=== PATIENT | female | born 1960 | race Caucasian/White ===

== ENCOUNTER 2018-07-19 12:04 | Inpatient (IN) | payer MEDICAID, OTHER ==
[~2018-07-19] VITALS: Ht 154.9 cm; Wt 47.0 kg
[2018-07-19] MEDS ORDERED: ALBUTEROL/IPRATROPIUM 2.5MG/0.5MG, 3 ML NPPB PRN (12:30)
[2018-07-19] MEDS ORDERED: ALBUTEROL/IPRATROPIUM 2.5MG/0.5MG, 3 ML ONE ×2 (13:00→15:23)
[2018-07-19 13:04] LABS: BASOPHILS # (AUTO) 0.03 x10^3/uL (0-0.1); BASOPHILS % (AUTO) 0 % (0-1); EOSINOPHILS # (AUTO) 0.05 x10^3/uL (0-0.4); EOSINOPHILS % (AUTO) 1 % (1-7); LYMPHOCYTES % (AUTO) 27 % (22-44); MD NO; MEAN CORPUSCULAR HEMOGLOBIN 37.7 pg (27.0-34.8); MEAN CORPUSCULAR VOLUME 107.5 fL (80-100); MEAN PLATELET VOLUME 7.9 fL (7.4-10.4); MONOCYTES # (AUTO) 0.62 x10^3/uL (0.2-0.8); MONOCYTES % (AUTO) 9 % (2-9); NEUTROPHILS # (AUTO) 4.55 x10^3/uL (1.8-6.8); NEUTROPHILS % (AUTO) 64 % (42-75); PLATELET COUNT 229 x10^3/uL (130-400); RED BLOOD COUNT 4.26 x10^6/uL (3.82-5.3); RED CELL DISTRIBUTION WIDTH 13.7 % (9.6-15.2)
[2018-07-19 13:13] LABS: ALBUMIN 3.1 g/dL (3.4-5.0); ANION GAP 9 mmol/L (5-15); CALCIUM 8.8 mg/dL (8.5-10.1); CHLORIDE 109 mmol/L (98-107); CREATININE 0.67 mg/dL (0.55-1.02)
[2018-07-19 13:29] LABS: TROPONIN I < 0.015 ng/mL (0.000-0.045)
[2018-07-19] MEDS ORDERED: AZITHROMYCIN 500 MG in SODIUM CHLORIDE 0.9% 250 ML IV ONE (14:30)
[2018-07-19] MEDS ORDERED: SODIUM CHLORIDE 0.9% 1,000ML IVBOLUS ONE (14:30)
[2018-07-19] MEDS ORDERED: ALBUTEROL SULFATE 2.5 MG/3 ML NPPB ONE (14:30)
[2018-07-19] MEDS ORDERED: NITROGLYCERIN 0.4 MG/SPRAY SL PRN (15:30)
[2018-07-19] MEDS ORDERED: KETOROLAC 30 MG/1 ML IV PRN (15:30)
[2018-07-19] MEDS ORDERED: NITROGLYCERIN 0.4 MG BOTTLE (25 TABS) SL PRN (15:30)
[2018-07-19] MEDS ORDERED: LIDODERM 5% PATCH TD PRN (15:30)
[2018-07-19] MEDS ORDERED: ONDANSETRON ODT 4 MG PO PRN (15:30)
[2018-07-19] MEDS ORDERED: BISACODYL 10 MG SUPP PR PRN (15:30)
[2018-07-19] MEDS ORDERED: DOCUSATE 100 MG CAPSULE PO PRN (15:30)
[2018-07-19] MEDS ORDERED: ACETAMINOPHEN 325 MG TABLET PO PRN (15:30)
[2018-07-19] MEDS ORDERED: ONDANSETRON 2MG/ML, 2ML IVPush PRN (15:30)
[2018-07-19] MEDS ORDERED: POLYETHYLENE GLYCOL 17 GM PACKET PO PRN (15:30)
[2018-07-19] MEDS ORDERED: ENOXAPARIN 40 MG/0.4 ML ONE (16:00)
[2018-07-19 16:13] LABS: THYROID STIMULATING HORMONE 0.617 mIU/L (0.358-3.740)
[2018-07-19 16:19] LABS: FOLATE LEVEL > 20.0 ng/mL (3.1-17.5)
[2018-07-19] MEDS ORDERED: ALBUTEROL SULFATE 2.5 MG/3 ML NPPB PRN (16:30)
[2018-07-19] MEDS: DOXYCYCLINE 100 MG in DEXTROSE 5% 250 ML IV SCH (17:00)
[2018-07-19 18:32] VITALS: BP 115/78
[2018-07-19 19:34] LABS: TROPONIN I < 0.015 ng/mL (0.000-0.045)
[2018-07-19 19:37] VITALS: BP 115/78
[2018-07-19] MEDS: ALBUTEROL SULFATE 2.5 MG/3 ML NPPB SCH (20:00)
[2018-07-19] MEDS ORDERED: BACL5TAB PO (20:05)
[2018-07-19] MEDS ORDERED: [UNRECOGNIZED DRUG - CODE] PO (20:06)
[2018-07-19] MEDS ORDERED: GABA300S PO (20:10)
[2018-07-19] MEDS ORDERED: NAPR500T8 PO (20:10)
[2018-07-19] MEDS ORDERED: NAPROXEN 500 MG TABLET PO PRN (20:30)
[2018-07-19] MEDS: ENOXAPARIN 40 MG/0.4 ML SQ SCH (20:46)
[2018-07-19] MEDS ORDERED: BACLOFEN 10 MG TABLET PO PRN (21:00)
[2018-07-19] MEDS: GUAIFENESIN 200 MG TABLET PO SCH ×2 (21:12→21:51)
[2018-07-19] MEDS: BENZONATATE 100 MG CAPSULE PO SCH ×2 (21:13→21:52)
[2018-07-19] MEDS: GABAPENTIN 300 MG CAPSULE PO SCH (21:13)
[2018-07-19] MEDS: SODIUM CHLORIDE 0.9% 1,000 ML IV SCH (21:15)
[2018-07-19] MEDS: NICOTINE 14MG/24 HR PATCH.TD24 TD SCH (21:16)
[2018-07-19] MEDS: FLUTICASONE NASAL SPRAY 16GM NAS SCH (22:00)
[2018-07-19] MEDS: SODIUM CHLORIDE NASAL SPRAY 45ML BOTTLE NAS SCH (22:00)
[2018-07-19] MEDS: BACLOFEN 10 MG TABLET PO PRN (22:13)
[2018-07-20 00:49] VITALS: BP 110/73
[2018-07-20] MEDS: DOXYCYCLINE 100 MG in DEXTROSE 5% 250 ML IV SCH ×2 (03:11→16:20)
[2018-07-20] MEDS: GUAIFENESIN 200 MG TABLET PO SCH ×4 (05:41→20:49)
[2018-07-20] MEDS: ASPIRIN 325 MG TABLET EC PO SCH (05:41)
[2018-07-20 05:57] LABS: MEAN CORPUSCULAR HEMOGLOBIN 37.5 pg (27.0-34.8); MEAN CORPUSCULAR HGB CONC 34.5 g/dL (32.4-35.8); MEAN CORPUSCULAR VOLUME 108.7 fL (80-100); MEAN PLATELET VOLUME 8.7 fL (7.4-10.4); PLATELET COUNT 202 x10^3/uL (130-400); RED BLOOD COUNT 4.59 x10^6/uL (3.82-5.3); RED CELL DISTRIBUTION WIDTH 13.9 % (9.6-15.2)
[2018-07-20 06:12] LABS: CHLORIDE 108 mmol/L (98-107)
[2018-07-20 06:17] LABS: BASOPHILS # (AUTO) 0.01 x10^3/uL (0-0.1); BASOPHILS % (AUTO) 0 % (0-1); EOSINOPHILS % (AUTO) 0 % (1-7); LYMPHOCYTES # (AUTO) 0.58 x10^3/uL (1-3.4); LYMPHOCYTES % (AUTO) 7 % (22-44); MD SCAN; MONOCYTES % (AUTO) 2 % (2-9); NEUTROPHILS % (AUTO) 91 % (42-75)
[2018-07-20 06:24] LABS: ANION GAP 12 mmol/L (5-15); CALCIUM 8.6 mg/dL (8.5-10.1); CREATININE 0.87 mg/dL (0.55-1.02)
[2018-07-20 07:05] VITALS: BP 126/81
[2018-07-20] MEDS: ALBUTEROL SULFATE 2.5 MG/3 ML NPPB SCH ×3 (08:10→14:43)
[2018-07-20] MEDS: SODIUM CHLORIDE 0.9% 1,000 ML IV SCH (08:42)
[2018-07-20] MEDS: CETIRIZINE 10 MG TABLET PO SCH (08:42)
[2018-07-20] MEDS: BENZONATATE 100 MG CAPSULE PO SCH ×3 (08:43→20:49)
[2018-07-20] MEDS: SODIUM CHLORIDE NASAL SPRAY 45ML BOTTLE NAS SCH ×2 (08:43→20:52)
[2018-07-20] MEDS: FLUTICASONE NASAL SPRAY 16GM NAS SCH ×2 (08:43→20:53)
[2018-07-20] MEDS: GABAPENTIN 300 MG CAPSULE PO SCH ×3 (08:43→20:49)
[2018-07-20] MEDS: BACLOFEN 10 MG TABLET PO PRN ×2 (12:08→20:52)
[2018-07-20 12:15] VITALS: BP 118/80
[2018-07-20] MEDS ORDERED: BACLOFEN 10 MG TABLET PO PRN (15:30)
[2018-07-20] MEDS: ENOXAPARIN 40 MG/0.4 ML SQ SCH (16:21)
[2018-07-20] MEDS ORDERED: ALBUTEROL SULFATE 2.5 MG/3 ML ONE (19:14)
[2018-07-20 19:47] VITALS: BP 137/80
[2018-07-20] MEDS: NAPROXEN 500 MG TABLET PO SCH (20:49)
[2018-07-20] MEDS: NICOTINE 14MG/24 HR PATCH.TD24 TD SCH (20:50)
[2018-07-21] MEDS: DOXYCYCLINE 100 MG in DEXTROSE 5% 250 ML IV SCH ×2 (03:36→15:13)
[2018-07-21 03:43] VITALS: BP 147/93
[2018-07-21] MEDS ORDERED: ALBUTEROL SULFATE 2.5 MG/3 ML ONE (03:58)
[2018-07-21] MEDS: ALBUTEROL SULFATE 2.5 MG/3 ML NPPB SCH ×5 (04:25→20:00)
[2018-07-21] MEDS ORDERED: ALBUTEROL SULFATE 2.5 MG/3 ML NPPB PRN (04:30)
[2018-07-21 05:23] LABS: ANION GAP 13 mmol/L (5-15); CALCIUM 8.1 mg/dL (8.5-10.1); CHLORIDE 113 mmol/L (98-107)
[2018-07-21 05:24] LABS: CREATININE 0.89 mg/dL (0.55-1.02)
[2018-07-21 05:39] LABS: MEAN CORPUSCULAR HEMOGLOBIN 37.6 pg (27.0-34.8); MEAN CORPUSCULAR HGB CONC 34.4 g/dL (32.4-35.8); MEAN CORPUSCULAR VOLUME 109.2 fL (80-100); MEAN PLATELET VOLUME 8.8 fL (7.4-10.4); PLATELET COUNT 186 x10^3/uL (130-400); RED BLOOD COUNT 4.06 x10^6/uL (3.82-5.3); RED CELL DISTRIBUTION WIDTH 13.8 % (9.6-15.2)
[2018-07-21] MEDS: ASPIRIN 325 MG TABLET EC PO SCH (05:41)
[2018-07-21] MEDS: GUAIFENESIN 200 MG TABLET PO SCH ×2 (05:41→10:23)
[2018-07-21 06:38] LABS: MD YES
[2018-07-21 06:39] LABS: ANISOCYTOSIS 1+; BAND#(MANUAL) 0.68 x10^3/uL; BANDS%(MANUAL) 5 % (0-7); LYMPH#(MANUAL) 1.22 x10^3/uL (1-3.4); LYMPHS% (MANUAL) 9 % (22-44); MONOS#(MANUAL) 0.41 x10^3/uL (0.3-2.7); MONOS% (MANUAL) 3 % (2-9); SEG#(MANUAL) 11.29 x10^3/uL (1.8-6.8); SEGS% (MANUAL) 83 % (42-75)
[2018-07-21 06:41] LABS: <PLATELET ESTIMATE> ADEQUATE; <PLT MORPHOLOGY> NORMAL PLT MORPH
[2018-07-21] MEDS ORDERED: POTASSIUM CHLORIDE 20 MEQ TAB.ER.PRT PO ONE (07:30)
[2018-07-21 07:42] VITALS: BP 130/82
[2018-07-21] MEDS: BENZONATATE 100 MG CAPSULE PO SCH ×3 (07:47→20:00)
[2018-07-21] MEDS: GABAPENTIN 300 MG CAPSULE PO SCH ×4 (07:47→20:02)
[2018-07-21] MEDS: CETIRIZINE 10 MG TABLET PO SCH (07:48)
[2018-07-21] MEDS: NAPROXEN 500 MG TABLET PO SCH ×2 (07:48→20:01)
[2018-07-21] MEDS: FLUTICASONE NASAL SPRAY 16GM NAS SCH ×2 (07:56→20:00)
[2018-07-21] MEDS: SODIUM CHLORIDE NASAL SPRAY 45ML BOTTLE NAS SCH ×2 (07:56→20:00)
[2018-07-21] MEDS: ENOXAPARIN 40 MG/0.4 ML SQ SCH (15:19)
[2018-07-21 19:25] VITALS: BP 136/87
[2018-07-21] MEDS: GUAIFENESIN ER 600 MG TABLET PO SCH (20:00)
[2018-07-21] MEDS: NICOTINE 14MG/24 HR PATCH.TD24 TD SCH (20:01)
[2018-07-21] MEDS: BACLOFEN 10 MG TABLET PO PRN (21:11)
[2018-07-22 01:43] VITALS: BP 143/91
[2018-07-22] MEDS: DOXYCYCLINE 100 MG in DEXTROSE 5% 250 ML IV SCH ×2 (03:38→15:30)
[2018-07-22] MEDS: ASPIRIN 325 MG TABLET EC PO SCH (05:51)
[2018-07-22] MEDS: ALBUTEROL SULFATE 2.5 MG/3 ML NPPB SCH ×3 (06:40→15:00)
[2018-07-22 07:06] VITALS: BP 140/93
[2018-07-22] MEDS: GABAPENTIN 300 MG CAPSULE PO SCH ×2 (09:00→09:09)
[2018-07-22] MEDS: NAPROXEN 500 MG TABLET PO SCH (09:00)
[2018-07-22] MEDS: GUAIFENESIN ER 600 MG TABLET PO SCH (09:08)
[2018-07-22] MEDS: CETIRIZINE 10 MG TABLET PO SCH (09:09)
[2018-07-22] MEDS: BENZONATATE 100 MG CAPSULE PO SCH (09:09)
[2018-07-22] MEDS: FLUTICASONE NASAL SPRAY 16GM NAS SCH (09:10)
[2018-07-22] MEDS: SODIUM CHLORIDE NASAL SPRAY 45ML BOTTLE NAS SCH (09:10)
[2018-07-22] MEDS ORDERED: GUAI600T31 PO (10:16)
[2018-07-22] MEDS ORDERED: DOXY100C15 PO (10:16)
[2018-07-22] MEDS ORDERED: PRED20TA PO (10:16)
[2018-07-22] MEDS ORDERED: ALBU2.5V NPPB (10:16)
[2018-07-22] MEDS ORDERED: ERGO500017 PO (10:30)
[2018-07-22 13:32] VITALS: BP 142/89
[2018-07-22] MEDS: ENOXAPARIN 40 MG/0.4 ML SQ SCH (15:30)
== END 2018-07-22 16:34 | disposition home or self-care (01) | DRG 192 ==
LOC: ED 14:12 → EDIP 15:15 → 4EST 18:11
PROVIDERS: ADMIT Internal Medicine; ATTEND Internal Medicine
DX: J44.1 Chronic obstructive pulmonary disease with (acute) exacerbation (principal); D75.89 Other specified diseases of blood and blood-forming organs; E55.9 Vitamin D deficiency, unspecified; F12.90 Cannabis use, unspecified, uncomplicated; F32.9 Major depressive disorder, single episode, unspecified; F41.1 Generalized anxiety disorder; R09.02 Hypoxemia; M81.0 Age-related osteoporosis without current pathological fracture; D75.1 Secondary polycythemia; G89.29 Other chronic pain; Z87.891 Personal history of nicotine dependence; Z90.710 Acquired absence of both cervix and uterus; Z88.6 Allergy status to analgesic agent; Z91.018 Allergy to other foods
CPT/HCPCS: 36415; 99285; J7613; 71046; 80048; 82040; 82306; 82607; 82746; 83735; 84443; 84484; 85025; 87070; 87205; 93005; 94640; G0378; J0456; J1650; J7060; J7030; J7050; J7512

== ENCOUNTER 2018-10-16 20:30 | Inpatient (IN) | payer MEDICAID ==
[~2018-10-16] VITALS: Ht 162.6 cm; Wt 54.3 kg
[~2018-10-16 20:30] MED LIST: ALBU2.5V NPPB; BACL5TAB PO; DOXY100C15 PO; ERGO500017 PO; ETOMIDATE 40 MG/20 ML ONE; GABA300S PO; GUAI600T31 PO; MIDAZOLAM 1 MG/ML, 5ML ONE; NAPR500T8 PO; PRED20TA PO; PROPOFOL 10 MG/ML, 100ML IV ONE; SUCCINYLCHOLINE 20 MG/ML, 10ML ONE; [UNRECOGNIZED DRUG - CODE] PO
[2018-10-16] MEDS ORDERED: LORazepam 2 MG/ML, 1ML ONE (20:36)
[2018-10-16] MEDS ORDERED: SODIUM CHLORIDE 0.9% 1,000ML IVBOLUS ONE ×2 (21:00→22:00)
[2018-10-16] MEDS ORDERED: SODIUM CHLORIDE FLUSH 10ML SYR IVF ONE (21:00)
[2018-10-16] MEDS ORDERED: LORazepam 2 MG/ML, 1ML IVPush ONE (21:00)
[2018-10-16 21:07] LABS: CULTURE INDICATED? YES; HCG UR SG > 1.030 (1.003-1.030); MICROSCOPIC INDICATED
[2018-10-16] MEDS ORDERED: ALBUTEROL/IPRATROPIUM 2.5MG/0.5MG, 3 ML ONE (21:20)
[2018-10-16 21:30] LABS: AMPHETAMINE SCREEN, URINE Negative (Negative); BARBITURATE SCREEN, URINE Negative (Negative); BENZODIAZEPINE SCREEN, URINE Negative (Negative); CANNABINOID SCREEN, URINE Positive (Negative); COCAINE SCREEN, URINE Negative (Negative); METHADONE SCREEN, URINE Negative (Negative); OPIATE SCREEN, URINE Negative (Negative)
[2018-10-16] MEDS ORDERED: ALBUTEROL/IPRATROPIUM 2.5MG/0.5MG, 3 ML NPPB ONE (21:30)
[2018-10-16 21:32] LABS: ALANINE AMINOTRANSFERASE 24 U/L (12-78); ANION GAP 16 mmol/L (5-15); CALCIUM 8.3 mg/dL (8.5-10.1); CHLORIDE 98 mmol/L (98-107); CREATININE 2.33 mg/dL (0.55-1.02)
[2018-10-16 21:34] LABS: ALKALINE PHOSPHATASE 61 U/L (45-117); BILIRUBIN,TOTAL 3.3 mg/dL (0.2-1.0); TOTAL PROTEIN 6.6 g/dL (6.4-8.2)
[2018-10-16 21:49] LABS: ACETAMINOPHEN < 2 mcg/mL (10-30); SALICYLATE LEVEL < 1.7 mg/dL (2.8-20.0)
[2018-10-16] MEDS ORDERED: AZITHROMYCIN 500 MG in SODIUM CHLORIDE 0.9% 250 ML IV ONE (22:00)
[2018-10-16] MEDS ORDERED: CEFTRIAXONE PMX 1GM/50ML 50 ML IV ONE (22:00)
[2018-10-16] MEDS ORDERED: DEXTROSE 50%, 50ML SYRINGE ONE (22:08)
[2018-10-16] MEDS ORDERED: CEFTRIAXONE PMX 1GM/50ML 50 ML ONE (22:11)
[2018-10-16] MEDS ORDERED: DEXTROSE 50%, 50ML SYRINGE IVPush ONE (22:30)
[2018-10-16] MEDS ORDERED: PROPOFOL 100 ML IV PRN (22:41)
[2018-10-16 22:49] LABS: MEAN CORPUSCULAR HEMOGLOBIN 36.2 pg (27.0-34.8); MEAN CORPUSCULAR HGB CONC 34.8 g/dL (32.4-35.8); MEAN CORPUSCULAR VOLUME 103.9 fL (80-100); RED BLOOD COUNT 4.11 x10^6/uL (3.82-5.3); RED CELL DISTRIBUTION WIDTH 12.6 % (9.6-15.2)
[2018-10-16 22:51] LABS: MD YES; PLATELET COUNT 13 x10^3/uL (130-400)
[2018-10-16 22:57] LABS: INTERNATIONAL NORMALIZED RATIO 1.19 (0.93-1.1); PROTHROMBIN TIME 12.5 Seconds (9.6-11.5)
[2018-10-16 22:59] LABS: PARTIAL THROMBOPLASTIN TIME > 153 Seconds (25-31)
[2018-10-16] MEDS ORDERED: ETOMIDATE 20 MG/10 ML IVPush ONE (23:00)
[2018-10-16] MEDS ORDERED: SUCCINYLCHOLINE 20 MG/ML, 10ML IVPush ONE (23:00)
[2018-10-16 23:09] LABS: ANISOCYTOSIS 1+; BAND#(MANUAL) 1.55 x10^3/uL; BANDS%(MANUAL) 37 % (0-7); LYMPH#(MANUAL) 0.17 x10^3/uL (1-3.4); LYMPHS% (MANUAL) 4 % (22-44); METAMYELOCYTES# (MANUAL) 0.04 x10^3/uL (0-0); METAMYELOCYTES% (MANUAL) 1 % (0-1); MONOS#(MANUAL) 0.13 x10^3/uL (0.3-2.7); MONOS% (MANUAL) 3 % (2-9); SEG#(MANUAL) 2.31 x10^3/uL (1.8-6.8); SEGS% (MANUAL) 55 % (42-75)
[2018-10-16 23:10] LABS: PMNS WITH VACUOLES 1+; TOXIC GRAN 2+
[2018-10-16 23:11] LABS: <PLATELET ESTIMATE> DECREASED; POLYCHROMASIA 1+
[2018-10-16 23:12] LABS: LARGE PLATELETS 1+
[2018-10-16] MEDS ORDERED: hydrALAzine 20 MG/ML, 1ML IVPush PRN (23:30)
[2018-10-16] MEDS ORDERED: FAMOTIDINE 20 MG/2 ML IVPush SCH (23:30)
[2018-10-16] MEDS ORDERED: ONDANSETRON 2MG/ML, 2ML IVPush PRN (23:30)
[2018-10-17 00:17] LABS: TROPONIN I 0.079 ng/mL (0.000-0.045)
[2018-10-17] MEDS ORDERED: MIDAZOLAM 1 MG/ML, 5ML IVPush ONE ×2 (00:30)
[2018-10-17] MEDS ORDERED: CEFTRIAXONE PMX 2GM/50ML 50 ML IV SCH ×2 (00:30→22:00)
[2018-10-17] MEDS ORDERED: AZITHROMYCIN 500 MG in SODIUM CHLORIDE 0.9% 250 ML IV SCH ×2 (00:30→22:00)
[2018-10-17] MEDS ORDERED: SODIUM BICARB 8.4%, 50ML SYRINGE ONE ×2 (00:38→12:55)
[2018-10-17] MEDS: SODIUM CHLORIDE 0.9% 1,000 ML IV SCH ×3 (00:43→14:24)
[2018-10-17] MEDS ORDERED: PROPOFOL 100 ML IV PRN (00:50)
[2018-10-17] MEDS ORDERED: NOREPINEPHRINE 4 MG in SODIUM CHLORIDE 0.9% 246 ML IV PRN (00:50)
[2018-10-17] MEDS ORDERED: LACTULOSE 20 GM/30 ML UDC NG PRN (01:00)
[2018-10-17] MEDS ORDERED: LIDOCAINE-MPF 1%, 2ML ENDO PRN (01:00)
[2018-10-17] MEDS ORDERED: PHARMACY MAY ADJ FOR RENAL FX MC SCH (01:00)
[2018-10-17] MEDS ORDERED: SODIUM BICARB 8.4%, 50ML SYRINGE IVPush ONE ×3 (01:00→15:00)
[2018-10-17] MEDS ORDERED: SODIUM CHLORIDE 0.9% 1,000ML IVBOLUS ONE ×2 (01:00→13:30)
[2018-10-17] MEDS ORDERED: SENNOSIDES 8.8 MG/5 ML ORAL SOL NG PRN (01:00)
[2018-10-17] MEDS ORDERED: FENTANYL PF 100 MCG/2ML IVPush PRN (01:00)
[2018-10-17] MEDS ORDERED: BISACODYL 10 MG SUPP PR PRN (01:00)
[2018-10-17] MEDS ORDERED: DOCUSATE 50 MG/5 ML, 10ML UDC PO PRN (01:30)
[2018-10-17] MEDS ORDERED: LACTATED RINGERS 1,000 ML IVBOLUS ONE ×2 (01:30)
[2018-10-17] MEDS ORDERED: SENNOSIDES 8.8 MG/5 ML ORAL SOL PO PRN (01:30)
[2018-10-17 01:31] LABS: PROTIME 12.3 Seconds (9.6-11.5)
[2018-10-17 01:32] LABS: D-DIMER (DIC) 4.33 ug/mlFEU (0.00-0.52)
[2018-10-17 01:40] LABS: FIBRINOGEN > 860 mg/dL (200-340); PLATELET (DIC) 14 x10^3/uL (130-400); PTT > 153 Seconds (25-31)
[2018-10-17] MEDS: ALBUTEROL/IPRATROPIUM 2.5MG/0.5MG, 3 ML INLINE SCH ×6 (02:23→21:00)
[2018-10-17 02:30] LABS: SALICYLATE LEVEL 2.4 mg/dL (2.8-20.0); TRIGLYCERIDES 259 mg/dL (50-200); TROPONIN I 0.087 ng/mL (0.000-0.045)
[2018-10-17 02:32] LABS: ACETAMINOPHEN < 2 mcg/mL (10-30)
[2018-10-17] MEDS: PIPERACILLIN/TAZO/PMX 3.375GM 50 ML IV SCH ×2 (02:39→13:25)
[2018-10-17 03:24] LABS: RAPID INFLUENZA A Negative (Negative); RAPID INFLUENZA B Negative (Negative)
[2018-10-17 04:00] VITALS: BP 94/63
[2018-10-17] MEDS ORDERED: VANCOMYCIN PER PHARMACY MC PRN (04:30)
[2018-10-17] MEDS ORDERED: PHARMACOKINETIC MONITORING MC PRN (05:00)
[2018-10-17] MEDS ORDERED: VANCOMYCIN PMX 1GM/200ML 200 ML IVPB ONE (05:00)
[2018-10-17] MEDS ORDERED: PHARMACOKINETIC CONSULTATION MC ONE (05:00)
[2018-10-17 05:17] LABS: MEAN CORPUSCULAR HEMOGLOBIN 35.9 pg (27.0-34.8); MEAN CORPUSCULAR HGB CONC 34.6 g/dL (32.4-35.8); MEAN CORPUSCULAR VOLUME 103.7 fL (80-100); RED BLOOD COUNT 3.91 x10^6/uL (3.82-5.3); RED CELL DISTRIBUTION WIDTH 13.1 % (9.6-15.2)
[2018-10-17 05:23] LABS: ALBUMIN 1.2 g/dL (3.4-5.0); ANION GAP 12 mmol/L (5-15); CALCIUM 6.8 mg/dL (8.5-10.1); CHLORIDE 107 mmol/L (98-107)
[2018-10-17 05:26] LABS: ALANINE AMINOTRANSFERASE 18 U/L (12-78); ALKALINE PHOSPHATASE 44 U/L (45-117); BILIRUBIN,TOTAL 3.7 mg/dL (0.2-1.0); CREATININE 2.19 mg/dL (0.55-1.02); TOTAL PROTEIN 4.5 g/dL (6.4-8.2)
[2018-10-17 05:27] LABS: TROPONIN I 0.122 ng/mL (0.000-0.045)
[2018-10-17 05:47] LABS: MD YES
[2018-10-17 05:52] LABS: MEAN PLATELET VOLUME 9.5 fL (7.4-10.4)
[2018-10-17 05:54] LABS: <PLATELET ESTIMATE> DECREASED; ANISOCYTOSIS 1+; BAND#(MANUAL) 0.92 x10^3/uL; BANDS%(MANUAL) 20 % (0-7); EOS#(MANUAL) 0.09 x10^3/uL (0.0-0.4); EOS% (MANUAL) 2 % (1-7); LYMPH#(MANUAL) 0.14 x10^3/uL (1-3.4); LYMPHS% (MANUAL) 3 % (22-44); METAMYELOCYTES# (MANUAL) 0.18 x10^3/uL (0-0); METAMYELOCYTES% (MANUAL) 4 % (0-1); MONOS#(MANUAL) 0.37 x10^3/uL (0.3-2.7); MONOS% (MANUAL) 8 % (2-9); PMNS WITH VACUOLES 1+; POLYCHROMASIA 1+; SEGS% (MANUAL) 63 % (42-75); TOXIC GRAN 2+
[2018-10-17 05:55] LABS: <PLT MORPHOLOGY> NORMAL PLT MORPH; PLATELET COUNT 9 x10^3/uL (130-400)
[2018-10-17] MEDS ORDERED: ALBUMIN HUMAN 5% 500 ML IV ONE (06:30)
[2018-10-17 08:14] VITALS: BP 83/46
[2018-10-17 08:30] VITALS: BP 83/46
[2018-10-17 08:45] VITALS: BP 83/48
[2018-10-17] MEDS ORDERED: VASOPRESSIN 100 UNIT in SODIUM CHLORIDE 0.9% 495 ML IV PRN (09:00)
[2018-10-17] MEDS ORDERED: HEPARIN 5,000 UNITS/ML, 1ML SQ SCH (09:00)
[2018-10-17] MEDS: PANTOPRAZOLE 40 MG IV IV SCH (09:00)
[2018-10-17] MEDS ORDERED: PANTOPRAZOLE 40 MG IV IVPush SCH (09:00)
[2018-10-17 09:15] VITALS: BP 72/46
[2018-10-17 09:30] VITALS: BP 79/45
[2018-10-17] MEDS ORDERED: NOREPINEPHRINE 8 MG in SODIUM CHLORIDE 0.9% 246 ML IV PRN (09:30)
[2018-10-17] MEDS ORDERED: PHENYLEPHRINE 20 MG in SODIUM CHLORIDE 0.9% 248 ML IV PRN (11:00)
[2018-10-17] MEDS ORDERED: EPINEPHRINE 2 MG in SODIUM CHLORIDE 0.9% 248 ML IV PRN (11:00)
[2018-10-17] MEDS ORDERED: SODIUM BICARBONATE 1 MEQ/ML, 50ML VIAL IVPush ONE (13:30)
[2018-10-17] MEDS ORDERED: SODIUM BICARBONATE 8.4% 150 MEQ in DEXTROSE 5% 1,000 ML IV SCH (14:30)
[2018-10-17] MEDS ORDERED: THIAMINE 200 MG in SODIUM CHLORIDE 0.9% 50 ML IV SCH (14:30)
[2018-10-17] MEDS: SODIUM BICARBONATE 8.4% 150 MEQ in DEXTROSE 5% 1,000 ML IV SCH ×2 (15:00→21:48)
[2018-10-17] MEDS ORDERED: MEROPENEM 1 GM in SODIUM CHLORIDE 0.9% 100 ML IV SCH (15:00)
[2018-10-17 15:40] LABS: MEAN CORPUSCULAR HGB CONC 33.6 g/dL (32.4-35.8); MEAN CORPUSCULAR VOLUME 104.1 fL (80-100); RED BLOOD COUNT 2.48 x10^6/uL (3.82-5.3); RED CELL DISTRIBUTION WIDTH 13.3 % (9.6-15.2)
[2018-10-17] MEDS: ALBUMIN HUMAN 25% 100 ML IV SCH ×2 (15:40→21:46)
[2018-10-17 15:43] LABS: MEAN PLATELET VOLUME 8.2 fL (7.4-10.4)
[2018-10-17 15:45] LABS: ALANINE AMINOTRANSFERASE 15 U/L (12-78); ANION GAP 15 mmol/L (5-15); CHLORIDE 112 mmol/L (98-107); MD YES; PLATELET COUNT 25 x10^3/uL (130-400)
[2018-10-17 15:48] LABS: ALKALINE PHOSPHATASE 52 U/L (45-117); BILIRUBIN,TOTAL 2.9 mg/dL (0.2-1.0); CREATININE 2.46 mg/dL (0.55-1.02); TOTAL PROTEIN 3.3 g/dL (6.4-8.2)
[2018-10-17 15:53] LABS: CALCIUM 5.6 mg/dL (8.5-10.1)
[2018-10-17] MEDS ORDERED: DEXTROSE 50%, 50ML SYRINGE ONE (15:55)
[2018-10-17 15:58] LABS: METAMYELOCYTES# (MANUAL) 0.72 x10^3/uL (0-0); METAMYELOCYTES% (MANUAL) 9 % (0-1); MONOS#(MANUAL) 0.32 x10^3/uL (0.3-2.7); MONOS% (MANUAL) 4 % (2-9); MYELOCYTES# (MANUAL) 0.08 x10^3/uL (0-0); MYELOCYTES% (MANUAL) 1 % (0-0); NRBC % (MANUAL) 2 % (0-1); SEG#(MANUAL) 4.64 x10^3/uL (1.8-6.8); SEGS% (MANUAL) 58 % (42-75)
[2018-10-17 15:59] LABS: ANISOCYTOSIS 1+; BAND#(MANUAL) 1.84 x10^3/uL; BANDS%(MANUAL) 23 % (0-7); LYMPHS% (MANUAL) 5 % (22-44); PMNS WITH VACUOLES 1+; TOXIC GRAN 2+
[2018-10-17 16:00] LABS: <PLATELET ESTIMATE> DECREASED; LARGE PLATELETS 1+
[2018-10-17] MEDS ORDERED: GLUCAGON 1 MG IM PRN (16:00)
[2018-10-17] MEDS ORDERED: DEXTROSE 4 GM TAB.CHEW PO PRN (16:00)
[2018-10-17] MEDS ORDERED: DEXTROSE 50%, 50ML SYRINGE IVPush PRN (16:00)
[2018-10-17] MEDS ORDERED: CALCIUM GLUCONATE 9.2 MEQ in SODIUM CHLORIDE 0.9% 100 ML IV ONE (16:00)
[2018-10-17] MEDS: PHENYLEPHRINE 40 MG in SODIUM CHLORIDE 0.9% 246 ML IV PRN ×2 (16:34→20:22)
[2018-10-17] MEDS: NOREPINEPHRINE 8 MG in SODIUM CHLORIDE 0.9% 242 ML IV PRN (20:22)
[2018-10-17] MEDS: SODIUM CHLORIDE FLUSH 10ML SYR IVF SCH (21:46)
[2018-10-17 21:58] LABS: MEAN CORPUSCULAR HEMOGLOBIN 36.4 pg (27.0-34.8); MEAN PLATELET VOLUME 8.9 fL (7.4-10.4); RED BLOOD COUNT 2.22 x10^6/uL (3.82-5.3); RED CELL DISTRIBUTION WIDTH 13.5 % (9.6-15.2)
[2018-10-17 22:01] LABS: MD YES; PLATELET COUNT 12 x10^3/uL (130-400)
[2018-10-17 22:13] LABS: ANISOCYTOSIS 1+; BANDS%(MANUAL) 29 % (0-7); LYMPH#(MANUAL) 0.47 x10^3/uL (1-3.4); LYMPHS% (MANUAL) 5 % (22-44); METAMYELOCYTES# (MANUAL) 0.56 x10^3/uL (0-0); METAMYELOCYTES% (MANUAL) 6 % (0-1); MONOS#(MANUAL) 0.19 x10^3/uL (0.3-2.7); MONOS% (MANUAL) 2 % (2-9); SEG#(MANUAL) 5.39 x10^3/uL (1.8-6.8); SEGS% (MANUAL) 58 % (42-75)
[2018-10-17 22:14] LABS: <PLATELET ESTIMATE> DECREASED; LARGE PLATELETS 1+; PMNS WITH VACUOLES 1+; POLYCHROMASIA 1+; TOXIC GRAN 2+
[2018-10-18] VITALS (8 sets, daily range): BP systolic 92–102; BP diastolic 47–61
[2018-10-18] MEDS: ALBUTEROL/IPRATROPIUM 2.5MG/0.5MG, 3 ML INLINE SCH ×3 (01:00→10:00)
[2018-10-18] MEDS: NOREPINEPHRINE 8 MG in SODIUM CHLORIDE 0.9% 242 ML IV PRN ×2 (01:44→10:51)
[2018-10-18] MEDS ORDERED: MEROPENEM 500 MG in SODIUM CHLORIDE 0.9% 100 ML IV SCH (03:00)
[2018-10-18 03:59] LABS: MEAN CORPUSCULAR HGB CONC 35.3 g/dL (32.4-35.8); MEAN CORPUSCULAR VOLUME 104.9 fL (80-100); RED BLOOD COUNT 1.77 x10^6/uL (3.82-5.3); RED CELL DISTRIBUTION WIDTH 13.6 % (9.6-15.2)
[2018-10-18 04:00] LABS: PLATELET COUNT 9 x10^3/uL (130-400)
[2018-10-18 04:11] LABS: MD YES
[2018-10-18 04:13] LABS: ANISOCYTOSIS 1+; BAND#(MANUAL) 2.91 x10^3/uL; BANDS%(MANUAL) 31 % (0-7); LYMPH#(MANUAL) 0.38 x10^3/uL (1-3.4); LYMPHS% (MANUAL) 4 % (22-44); METAMYELOCYTES# (MANUAL) 0.56 x10^3/uL (0-0); METAMYELOCYTES% (MANUAL) 6 % (0-1); MONOS#(MANUAL) 0.19 x10^3/uL (0.3-2.7); MONOS% (MANUAL) 2 % (2-9); SEG#(MANUAL) 5.36 x10^3/uL (1.8-6.8); SEGS% (MANUAL) 57 % (42-75)
[2018-10-18 04:14] LABS: <PLATELET ESTIMATE> DECREASED; LARGE PLATELETS 1+; PMNS WITH VACUOLES 1+; POLYCHROMASIA 1+; TOXIC GRAN 2+
[2018-10-18] MEDS: ALBUMIN HUMAN 25% 100 ML IV SCH ×2 (04:36→10:56)
[2018-10-18 04:46] LABS: ANION GAP 20 mmol/L (5-15); CHLORIDE 106 mmol/L (98-107); CREATININE 2.81 mg/dL (0.55-1.02)
[2018-10-18 04:51] LABS: CALCIUM 5.8 mg/dL (8.5-10.1); VANCOMYCIN,RANDOM 17.7 mcg/mL
[2018-10-18] MEDS ORDERED: CALCIUM GLUCONATE 9.2 MEQ in SODIUM CHLORIDE 0.9% 100 ML IV ONE ×3 (05:30→10:30)
[2018-10-18 05:31] LABS: INTERNATIONAL NORMALIZED RATIO 1.43 (0.93-1.1)
[2018-10-18] MEDS: SODIUM BICARBONATE 8.4% 150 MEQ in DEXTROSE 5% 1,000 ML IV SCH (06:05)
[2018-10-18] MEDS ORDERED: POTASSIUM CHLORIDE 40 MEQ in SODIUM CHLORIDE 0.9% 100 ML IV ONE (08:00)
[2018-10-18 09:38] LABS: MEAN CORPUSCULAR HGB CONC 35.3 g/dL (32.4-35.8); RED BLOOD COUNT 2.32 x10^6/uL (3.82-5.3); RED CELL DISTRIBUTION WIDTH 15.9 % (9.6-15.2)
[2018-10-18 09:51] LABS: MEAN PLATELET VOLUME 8.7 fL (7.4-10.4)
[2018-10-18 09:57] LABS: PLATELET COUNT 7 x10^3/uL (130-400)
[2018-10-18 10:03] LABS: MD YES
[2018-10-18 10:06] LABS: ANISOCYTOSIS 1+; BAND#(MANUAL) 2.97 x10^3/uL; BANDS%(MANUAL) 27 % (0-7); LYMPH#(MANUAL) 0.77 x10^3/uL (1-3.4); LYMPHS% (MANUAL) 7 % (22-44); METAMYELOCYTES# (MANUAL) 0.11 x10^3/uL (0-0); METAMYELOCYTES% (MANUAL) 1 % (0-1); MONOS#(MANUAL) 0.11 x10^3/uL (0.3-2.7); MONOS% (MANUAL) 1 % (2-9); POLYCHROMASIA 1+; SEG#(MANUAL) 7.04 x10^3/uL (1.8-6.8); SEGS% (MANUAL) 64 % (42-75); TOXIC GRAN 2+
[2018-10-18 10:08] LABS: <PLATELET ESTIMATE> DECREASED; <PLT MORPHOLOGY> QNS FOR PLT MORPH
[2018-10-18] MEDS ORDERED: KSCALE TO 4.0 IV SCH (10:30)
[2018-10-18] MEDS: PANTOPRAZOLE 40 MG IV IV SCH (10:52)
[2018-10-18] MEDS: SODIUM CHLORIDE FLUSH 10ML SYR IVF SCH (10:57)
[2018-10-18] MEDS ORDERED: ACETAMINOPHEN 650 MG/20.3 ML UDC PO PRN (13:30)
[2018-10-18] MEDS ORDERED: SCOPOLAMINE PATCH, 1.5MG PATCH.TD72 TD ONE ×2 (14:14→14:30)
[2018-10-18] MEDS ORDERED: ATROPINE OPHTH SOLN 1%, 5ML PO PRN (14:30)
[2018-10-18] MEDS ORDERED: LORazepam 2 MG/ML, 1ML IVPush PRN ×2 (14:30)
[2018-10-18] MEDS ORDERED: morphine SULFATE 10 MG/ML, 1ML IVPush PRN ×2 (14:30)
[2018-10-18] MEDS ORDERED: SODIUM BICARBONATE 8.4% 150 MEQ in DEXTROSE 5% 1,000 ML IV SCH (15:00)
[2018-10-18] MEDS ORDERED: VANCOMYCIN PMX 1GM/200ML 200 ML IVPB ONE (16:00)
== END 2018-10-18 18:00 | disposition expired | DRG 871 ==
LOC: ED 21:16 → EDIP 22:59 → CCU 10-17 00:05
PROVIDERS: ADMIT Hospitalist; ATTEND Hospitalist
PROC: 5A1945Z Respiratory Ventilation, 24-96 Consecutive Hours (ICD-10-PCS; principal; 2018-10-16)
PROC: 0BH17EZ Insertion of Endotracheal Airway into Trachea, Via Natural or Artificial Opening (ICD-10-PCS; 2018-10-16)
PROC: 0T9B70Z Drainage of Bladder with Drainage Device, Via Natural or Artificial Opening (ICD-10-PCS; 2018-10-16)
PROC: 30233R1 Transfusion of Nonautologous Platelets into Peripheral Vein, Percutaneous Approach (ICD-10-PCS; 2018-10-17)
PROC: 06HY33Z Insertion of Infusion Device into Lower Vein, Percutaneous Approach (ICD-10-PCS; 2018-10-17)
PROC: 30233N1 Transfusion of Nonautologous Red Blood Cells into Peripheral Vein, Percutaneous Approach (ICD-10-PCS; 2018-10-18)
DX: A40.3 Sepsis due to Streptococcus pneumoniae (principal); R65.21 Severe sepsis with septic shock; E43 Unspecified severe protein-calorie malnutrition; J18.1 Lobar pneumonia, unspecified organism; J96.01 Acute respiratory failure with hypoxia; N17.0 Acute kidney failure with tubular necrosis; M31.1 Thrombotic microangiopathy; D68.69 Other thrombophilia; E87.2 Acidosis; G93.40 Encephalopathy, unspecified; J44.0 Chronic obstructive pulmonary disease with (acute) lower respiratory infection; M62.82 Rhabdomyolysis; R18.8 Other ascites; Z99.11 Dependence on respirator [ventilator] status; D64.9 Anemia, unspecified; D75.1 Secondary polycythemia; D75.89 Other specified diseases of blood and blood-forming organs; E16.2 Hypoglycemia, unspecified; E83.51 Hypocalcemia; E86.0 Dehydration; E87.6 Hypokalemia; F12.90 Cannabis use, unspecified, uncomplicated; F17.200 Nicotine dependence, unspecified, uncomplicated; K21.9 Gastro-esophageal reflux disease without esophagitis; K76.0 Fatty (change of) liver, not elsewhere classified; M81.0 Age-related osteoporosis without current pathological fracture; Z51.5 Encounter for palliative care; Z66 Do not resuscitate; Z87.11 Personal history of peptic ulcer disease; Z90.710 Acquired absence of both cervix and uterus; Z91.19 Patient's noncompliance with other medical treatment and regimen; Z88.6 Allergy status to analgesic agent; Z91.018 Allergy to other foods; Z68.20 Body mass index [BMI] 20.0-20.9, adult
CPT/HCPCS: 31500; 36415; 36600; 84145; 87400; 99291; J7620; 36430; 70450; 71045; 76700; 80048; 80053; 80202; 80307; 80329; 81001; 81025; 82140; 82150; 82330; 82533; 82550; 82607; 82803; 82962; 83605; 83615; 83690; 83735; 84100; 84478; 84484; 85025; 85049; 85379; 85384; 85610; 85730; 86850; 86900; 86923; 87040; 87070; 87077; 87081; 87086; 87181; 87205; 93005; 93308; 93321; 93325; 94002; 94003; 94640; 96374; 96375; G0378; J0456; J0610; J0696; J2185; J2250; J2543; J2704; J3370; J3411; J3480; J7070; P9045; P9047; C9113; G0480; J0330; J2060; J2270; J2370; J7030; J7050; J7120; P9016; P9035